=== PATIENT | female | born 1995 ===

== ENCOUNTER → 2017-01-20 | Outpatient (CLI) | payer OTHER ==
--- NOTE | 2017-01-20 13:40 | DIAGNOSTIC IMAGING REPORT ---
LEFT ANKLE MIN 3 VIEWS CLINICAL HISTORY: Left ankle pain TRAUMA COMPARISON: None. DISCUSSION: There is a small ossicle adjacent to the medial malleolar tip. This is consistent with an age-indeterminate avulsion. The ankle mortise appears intact. No fractures the distal fibula are visualized. IMPRESSION: Age-indeterminate medial malleolar tip avulsion Electronically signed by: Clovis Pang M.D. 01/20/2017 1:38 PM Dictated Date/Time: 01/20/2017 1:37 PM
--- NOTE | 2017-01-20 13:58 | DIAGNOSTIC IMAGING REPORT ---
LEFT FOOT MIN 3 VIEWS CLINICAL HISTORY: LEFT FOOT AND ANKLE PAIN COMPARISON: None. DISCUSSION: No fractures are visualized. There are no erosive or destructive changes. IMPRESSION: No acute fractures or dislocations identified. Electronically signed by: Clovis Pang M.D. 01/20/2017 1:56 PM Dictated Date/Time: 01/20/2017 1:49 PM
== END | disposition home or self-care (01) ==
LOC: C.RDSM 12:03
PROVIDERS: ATTEND Family Medicine
DX: M25.572 Pain in left ankle and joints of left foot (principal)

== ENCOUNTER → 2017-05-21 | Outpatient (CLI) | payer OTHER ==
--- NOTE | 2017-05-22 08:49 | DIAGNOSTIC IMAGING REPORT ---
RIGHT THUMB 3 VIEWS HISTORY: RIGHT THUMB PAIN Right COMPARISON: None. FINDINGS: Small slightly distracted fracture at the ulnar base of the proximal phalanx of the right thumb. This demonstrates 2 mm of ulnar displacement. No dislocation. Soft tissues are the first MCP joint. No radiopaque foreign bodies. IMPRESSION: Slightly distracted small fracture at the base of the proximal phalanx of the right thumb consistent with a gamekeepers thumb. Electronically signed by: Brody Mcknight M.D. 05/22/2017 8:48 AM Dictated Date/Time: 05/22/2017 8:46 AM
== END | disposition home or self-care (01) ==
LOC: C.RDSM 14:53
PROVIDERS: ATTEND Family Medicine
DX: S62.511A Displaced fracture of proximal phalanx of right thumb, initial encounter for closed fracture (principal); X58.XXXA Exposure to other specified factors, initial encounter

== ENCOUNTER → 2017-08-12 | Outpatient (CLI) | payer OTHER ==
--- NOTE | 2017-08-12 11:11 | DIAGNOSTIC IMAGING REPORT ---
AC JOINTS BILATERAL CLINICAL HISTORY: LEFT AC JOINT PAIN COMPARISON STUDY: None. FINDINGS: Bilateral AC joints are well aligned. There is slight widening of the left AC joint comparison to the right. The right AC joint measures 3 mm and the left AC joint measures 6 mm. Therefore, this raises the possibility of a type I left AC joint separation. No fractures identified. IMPRESSION: 1. No fractures identified at the AC joints. 2. Slight widening of the left AC joint in comparison to the right. This could be a normal variant or represent a type I left AC joint separation. Electronically signed by: Brody Mcknight M.D. 08/12/2017 11:10 AM Dictated Date/Time: 08/12/2017 11:06 AM
== END | disposition home or self-care (01) ==
LOC: C.RDSM 13:05
PROVIDERS: ATTEND Family Medicine
DX: M67.912 Unspecified disorder of synovium and tendon, left shoulder (principal)